=== PATIENT | male | born 1950 | race Caucasian/White ===

== ENCOUNTER 2024-10-13 10:02 | Emergency (ER) | payer MEDICARE, SELFPAY ==
--- NOTE | ~2024-10-13 | XR_ITS ---
CHEST RADIOGRAPH CLINICAL HISTORY: cough . COMPARISON: None TECHNIQUE: Single portable view of the chest. FINDINGS The cardiomediastinal silhouette is unremarkable. The lungs are clear. Visualized osseous structures and soft tissues are unremarkable. IMPRESSION: No focal infiltrate or effusion. Reviewed, dictated and finalized at location A. DEVELOPER ARCHITECT
[2024-10-13 10:26] VITALS: BP 129/78; PULSE 59; RESP 18; TEMP 36.3; O2SAT 98
[2024-10-13 12:02] VITALS: BP 124/80; PULSE 70; RESP 16; TEMP 36.6; O2SAT 100
[2024-10-13] MEDS: BENZONATATE 100 MG CAPSULE 200 MG PO (13:09)
[2024-10-13 13:19] LABS: Influenza A QL RT-PCR Negative (Negative); Influenza B QL RT-PCR Negative (Negative); RSV RNA, RT-PCR Negative (Negative); SARS-CoV-2 RNA PCR Negative (Negative)
--- NOTE | 2024-10-13 13:25 | ED_ITS ---
HPI - General Adult General Chief complaint: Upper Respiratory Infection Stated complaint: cough Time Seen by Provider: 10/13/24 12:01 History of Present Illness HPI narrative: 74-year-old male presents to the emergency department for evaluation for cough and congestion. Patient states he was evaluated at the urgent care on Sunday was also diagnosed with common cold. Patient was not prescribed any medication for cough suppression. Patient presents to the emergency department with family complaining of increased cough. Related Data Allergies Allergy/AdvReac Type Severity Reaction Status Date / Time lisinopril Allergy Severe Swelling Verified 10/13/24 13:09 of Lip/Tongue/Throat Review of Systems Review of Systems: All systems reviewed & are unremarkable except as noted in HPI and below Exam Narrative: APPEARANCE: Well appearing, no pain, no distress, well-nourished. HEAD: normocephalic, atraumatic. EYES: PERRLA/EOMI, conjunctivae clear. NOSE: Normal no drainage EARS:TMS clear with good light reflex. THROAT: Pharynx clear, no exudate. NECK: Supple. No adenopathy, no masses. RESPIRATORY: Airway patent, respirations nonlabored. Clear to auscultation bilaterally, no rales, rhonchi, wheezing. CARDIOVASCULAR: Regular rate and rhythm without murmurs rubs or gallops. ABDOMINAL: Soft, nontender, nondistended, normal bowel sounds MUSCULOSKELETAL: Moves all extremities. Strength/ROM intact, No edema, No calf tenderness. NEURO: Alert. Cranial nerves II through XII intact. Good gait. Good coordination SKIN: Warm, dry. Normal Color Course Vital Signs Vital signs: Vital Signs Temperature 97.4 F L 10/13/24 10:26 Pulse Rate 59 L 10/13/24 10:26 Respiratory Rate 18 10/13/24 10:26 Blood Pressure 129/78 10/13/24 10:26 Pulse Oximetry 98 10/13/24 10:26 Oxygen Delivery Room Air 10/13/24 10:26 Temperature 97.9 F 10/13/24 14:24 Pulse Rate 68 10/13/24 14:24 Respiratory Rate 16 10/13/24 14:24 Blood Pressure 118/78 10/13/24 14:24 Pulse Oximetry 98 10/13/24 14:24 Oxygen Delivery Room Air 10/13/24 12:01 Medical Decision Making [facility] Narrative Medical decision making narrative: 74-year-old male from the emergency department for evaluation for viral syndrome. Patient was negative influenza RSV and for COVID. Chest x-ray as negative. Patient will be provided Tessalon Perles for cough. Patient was encouraged of close follow-up with primary care physician. Differential Diagnosis Differential Diagnosis: COVID, RSV, influenza, pneumonia Vital Signs Vital Signs: Vital Signs Temperature 97.4 F L 10/13/24 10:26 Pulse Rate 59 L 10/13/24 10:26 Respiratory Rate 18 10/13/24 10:26 Blood Pressure 129/78 10/13/24 10:26 Pulse Oximetry 98 10/13/24 10:26 Oxygen Delivery Room Air 10/13/24 10:26 Temperature 97.9 F 10/13/24 14:24 Pulse Rate 68 10/13/24 14:24 Respiratory Rate 16 10/13/24 14:24 Blood Pressure 118/78 10/13/24 14:24 Pulse Oximetry 98 10/13/24 14:24 Oxygen Delivery Room Air 10/13/24 12:01 Lab Data Labs: Lab Results 10/13/24 Range/Units 12:38 Influenza A (RT-PCR) Negative (Negative) Influenza B (RT-PCR) Negative (Negative) RSV (RT-PCR) Negative (Negative) SARS-CoV-2 RNA (RT-PCR) Negative (Negative) Imaging Data Radiologist's impression: Impressions Chest X-Ray 10/13/24 13:40 IMPRESSION: No focal infiltrate or effusion. Discharge Plan Discharge Clinical Impression: Acute viral syndrome Patient Disposition: Home, Self-Care Condition: Stable Instructions: Antibiotic Form, Viral Syndrome (ED) Additional Instructions: Tessalon Perles for cough and congestion. Have close follow-up with your primary care physician. If you have any worsening symptoms then please call or return to the emergency department Patient Language: Citizen Of [place] Prescriptions: New benzonatate 100 mg capsule 100 mg PO TID PRN (Reason: cough) Qty: 14 0RF Follow-up/Referrals: Short,Nica Fitzgerald NP [Primary Care Provider] -
--- OUTSIDE RECORDS SUMMARY | 2024-10-13 13:59 | XMS_ITS | Encounter Summary ---
Author Organization [facility] Address [address] [place] [address] Care Team Providers Care Painter Mirror Name Role Phone Yudith Burrows DO Primary Care Provider [phone] Encounter Details Date Type Department Care Team (Late st Contact Info) Description 08/05/2020 Prep for Procedure [facility] [place] [address] Godwin Henderson MD Social History Tobacco Use Types Packs/Day Years Used Date Smoking Tobacco: Never Assessed Sex and Gender Information Value Date Recorded Sex Assigned at Not on file Legal Sex Male 8:04 PM CDT Gender Identity Not on file Sexual Orientation Not on file documented as of this encounter Plan of Treatment Not on file documented as of this encounter Visit Diagnoses Not on filedocumented in this encounter Additional Health Concerns Infection Onset Date Last Indicated Resolved Time COVID-19 Rule Out 08/07/2020 08/07/2020 08/08/2020 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
--- OUTSIDE RECORDS SUMMARY | 2024-10-13 13:59 | XMS_ITS | Encounter Summary ---
Author Organization [facility] Address [address] [place] [address] Care Team Providers Care Clay House Worker Name Role Phone Yudith Burrows DO Primary Care Provider Encounter Details Date Type Department Care Team (Late st Contact Info) Description 08/07/2020 Prep for Procedure [facility] One [place], [place] [address] Quirino Pimentel MD [address] [address] Social History Tobacco Use Types Packs/Day Years Used Date Smoking Tobacco: Never Assessed Sex and Gender Information Value Date Recorded Sex Assigned at Not on file Legal Sex Male 8:04 PM CDT Gender Identity Not on file Sexual Orientation Not on file COVID-19 Exposure Response Date Recorded In the last month, have you been in contact with someone who was confirmed or suspected to have Coronavirus / COVID-19? No / Unsure 08/10/2020 7:22 AM ELECTRICAL PRODUCTS ENGINEER documented as of this encounter Plan of Treatment Not on file documented as of this encounter Results * PRE-SURGICAL/PRE-PROCEDURE CORONAVIRUS (COVID 19) (08/07/2020 11:58 AM ELECTRICAL PRODUCTS ENGINEER) CORONAVIRUS SARS COV 2 PCR (RESP) NOT DETECTED NOT DETECTED 08/08/2020 8:16 PM ELECTRICAL PRODUCTS ENGINEER [facility] Comment: A Not Detected (negative) test result for this test means that SARS- CoV-2 RNA was not present in the specimen above the limit of detection. A negative result does not rule out the possibility of COVID-19 and should not be used as the sole basis for treatment or patient management decisions. If COVID-19 is still suspected, based on exposure history together with other clinical findings, re-testing should be considered in consultation with public health authorities. Laboratory test results should always be considered in the context of clinical observations and epidemiological data in making a final diagnosis and patient management decisions. Please review the Fact Sheets and FDA authorized labeling available for health care providers and patients using the following websites: https://[email or web address]/home/Covid-19/HCP/NAAT/fact-sheet2 https://www.[employer]/home/Covid-19/Patients/NAAT/ fact-sheet2 This test has been authorized by the FDA under an Emergency Use Authorization (EUA) for use by authorized laboratories. Due to the current public health emergency, [facility] is receiving a high volume of samples from a wide variety of swabs and media for COVID-19 testing. In order to serve patients during this public health crisis, samples from appropriate clinical sources are being tested. Negative test results derived from specimens received in non-commercially manufactured viral collection and transport media, or in media and sample collection kits not yet authorized by FDA for COVID-19 testing should be cautiously evaluated and the patient potentially subjected to extra precautions such as additional clinical monitoring, including collection of an additional specimen. Methodology: Nucleic Acid Amplification Test (NAAT) includes RT-PCR or TMA Additional information about COVID-19 can be found at the [facility] website: www.[employer]/Covid19. Test performed at [facility] [address] [place] [address] Director: OMERO PETIT DO,MPH FIRST TEST YES 08/07/2020 12:[address] [facility] EMPLOYED IN HEALTHCARE NO 08/07/2020 12:[address] [facility] SYMPTOMATIC DEFINED BY CDC NO 08/07/2020 12:[address] [facility] DATE OF SYMPTOM ONSET NO 08/07/2020 12:[address] [facility] HOSPITALIZATION STATUS NO 08/07/2020 12:15 PM ELECTRICAL PRODUCTS ENGINEER [facility] PATIENT IN ICU NO 08/07/2020 12:15 PM ELECTRICAL PRODUCTS ENGINEER [facility] 08/07/2020 12:15 PM ELECTRICAL PRODUCTS ENGINEER [facility] NOT 08/07/2020 12:42 PM ELECTRICAL PRODUCTS ENGINEER [facility] PATIENT'S RACE WHITE OR 08/07/2020 12:15 PM ELECTRICAL PRODUCTS ENGINEER [facility] ETHNICITY NONHISPANIC 08/07/2020 12:15 PM ELECTRICAL PRODUCTS ENGINEER [facility] SOURCE (QST) NASOPHARYNGEAL SWAB 08/07/2020 12:15 PM ELECTRICAL PRODUCTS ENGINEER [facility] NASOPHARYNGEAL SWAB / Unknown 08/07/2020 11:58 AM ELECTRICAL PRODUCTS ENGINEER us Quirino Pimentel MD [facility] Final Result [facility] [address] [place] [address], [facility] [id number] [place] [address], documented in this encounter Visit Diagnoses Diagnosis History of colon polyps- Primary Personal history of colonic polyps documented in this encounter Additional Health Concerns Infection Onset Date Last Indicated Resolved Time COVID-19 Rule Out 08/07/2020 08/07/2020 08/08/2020 8:16 PM ELECTRICAL PRODUCTS ENGINEER documented as of this encounter Care Teams Clay House Worker Relationship Specialty Start Date End Date Yudith Burrows DO [address] [place] [phone] PCP - General INTERNAL MEDICINE 08/10/20 documented as of this encounter
--- OUTSIDE RECORDS SUMMARY | 2024-10-13 13:59 | XMS_ITS | Patient Health Record ---
Author Organization [facility] Address [address] [place] [address] Care Team Providers Care Transport Specialist Name Role Phone Ebenezer Nica Primary Care Provider Edgardo Roth Unavailable [phone] Yris Man Unavailable [phone] America Mckee Unavailable [phone] Allergies Allergen (clinical drug ingredient) Drug/Non Drug Allergy documented on EMR Reaction Allergy Type Onset Date Status lisinopril Lisinopril anaphylaxis Drug Allergy Act alan Reason For Referral Reason Referral for psychot herapy and client wants information on outpatient classes for anxiety, coping skills, or other types of wellness groups Diagnosis 1 SYLVIA (generalized anx iety disorder) (F41.1) Referral Organization [facility] Referring Provider First Name America Referring Provider Last Name Rylee Referring Provider Speciality Psychiatry Referred Provider Specialty Behavioral H [facility] Referral Priority Routine Medications Medication SIG (Take, Route, Frequency, Duration) Notes Start Date End Date Status HYDROcodone-Acetaminophen 5-325 MG 1 tablet as needed as needed Active Promethazine-DM 6.25-15 MG/5ML 5 mL as needed Orally every 6 hrs for 10 days As needed cough 10/08/2024 Active buPROPion HCl ER (XL) 150 MG 1 tablet in the morning Once a day Active traZODone HCl 50 MG 1 tablet at bedtime as needed Once a day Active Sertraline HCl 200 MG 1 capsule Once a day Active Furosemide 20 MG 1 tablet Once a day Active Atorvastatin Calcium 10 MG 1 tablet Once a day Active Social History Tobacco Use: Social History Observation Description Date Details (start date - stop date) Never Smoker NA - NA Sex Assigned At : Social History Observation Description Sex Assigned At Male Tobacco Control (Standard) Question Answer Notes Tobacco use: Nonsmoker Section Notes: - - - - - - - - - - - ADDITIONAL SOCIAL HISTORY 10/06/2024: - - - - - - - - - - - PERSONAL BACKGROUND HISTORY Describe childhood- Happy, grew up with both parents and 3 siblings Abuse/Trauma- None Education- Bachelor's degree in art 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 Currently on sertraline, bupropion, and trazodone. 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 Currently on sertraline, bupropion, and trazodone. Inpt Psych Hospitalizations - None Suicidal Ideation Hx - None Suicide Attempt(s) - None Homicidal Ideation - None Self-Injury/High Risk Bx - None - - - - - - - - - - - FAMILY PSYCHIATRIC HISTORY Suicides or Attempts - None Alcohol/Drug Use - Brother had drug abuse issues Other Disorders - No known mental illness on either side of family - - - - - - - - - - - Problems Problem Type SNOMED Code ICD Code Onset Dates Problem Status W/U Status Risk Notes Problem Hypertension (39887059) Hypertension (I10) Active confirmed Problem Generalized anxiety disorder (69967852) SYLVIA (generalized anxiety disorder) (F41.1) Active confirmed Problem Sleep disturbance (94834754) Sleep disturbance (G47.9) Active confirmed Vital Signs Heart Rate 61 /min 10/09/2024 Temperature 98.8 degrees Fahrenheit 10/09/2024 Respiratory Rate 18 /min 10/09/2024 Blood pressure diastolic 78 mm Hg 10/09/2024 Oximetry 98 % 10/09/2024 Height 74 in 10/09/2024 Blood pressure systolic 118 mm Hg 10/09/2024 Weight 234.8 lbs 10/09/2024 BMI 30.14 kg/m2 10/09/2024 Encounters Encounter Location Date Provider Diagnosis [facility] [address] [place] [address] 10/08/2024 rYis Man [facility] [address] [place] [address] 10/13/2024 Nica Sol [facility] [address] [place] [address] 10/09/2024 Nica Sol Nutritional counseling Z71.3 ; Viral upper respiratory infection J06.9 and Development delay R62.[address] [place] [address] 10/08/2024 Edgardo Roth Nutritional counseling Z71.3 and Viral URI with cough J06.[address] [facility] [address] 10/01/2024 Nica Sol Nutritional counseling Z71.3 ; Establishing care with new doctor, encounter for Z71.89 ; Screening for deficiency anemia Z13.0 ; Screening for metabolic disorder Z13.228 ; Screening for diabetes mellitus Z13.1 ; Screening for thyroid disorder Z13.29 ; Screening for hyperlipidemia Z13.220 ; Screening for prostate cancer Z12.5 and Hypertension I10 [address] [place] [address] 10/06/2024 America Mckee SYLVIA (generalized anxiety disorder) F41.1 ; Sleep disturbance G47.9 and Medication management Z79.899 Assessments Encounter Date Diagnosis (ICD Code) Assessment Notes Treatment Notes Treatment Clinical Notes Section Notes 10/01/2024 Establishing care with new doctor, encounter for (ICD-10 - Z71.89) 10/01/2024 Nutritional counseling (ICD-10 - Z71.3) 10/08/2024 Nutritional counseling (ICD-10 - Z71.3) 10/08/2024 Viral URI with cough (ICD-10 - J06.9) 10/09/2024 Nutritional counseling (ICD-10 - Z71.3) 10/09/2024 Viral upper respiratory infection (ICD-10 - J06.9) 10/06/2024 SYLVIA (generalized anxiety disorder) (ICD-10 - F41.1) Recommend client continue currement medications for mood, and start therapy and/or outpatient classes for irritability. 10/06/2024 Sleep disturbance (ICD-10 - G47.9) 10/01/2024 Screening for deficiency anemia (ICD-10 - Z13.0) 10/06/2024 Medication management (ICD-10 - Z79.899) Client reports that he does NOT need refills at this time. May self-administer medications or be administered own oral medications per [facility] protocols. Provided informed consent with understanding of side effects, adverse effects, risks and benefits as well as alternative treatments as previously discussed and with the above recommended medications & other aspects of the treatment program. Agrees to return sooner if symptoms worsen or suicidal or homicidal ideations occur. 10/09/2024 Development delay (ICD-10 - R62.50) 10/01/2024 Screening for metabolic disorder (ICD-10 - Z13.228) 10/01/2024 Screening for diabetes mellitus (ICD-10 - Z13.1) 10/01/2024 Screening for thyroid disorder (ICD-10 - Z13.29) 10/01/2024 Screening for hyperlipidemia (ICD-10 - Z13.220) 10/01/2024 Screening for prostate cancer (ICD-10 - Z12.5) 10/01/2024 Hypertension (ICD-10 - I10) 10/09/2024 Other Patient may self-administe r their own medications or may self-administe r their own oral medications per [facility] Protocol. Plan Of Treatment Future Test Test Name Order Date Hemoglobin A1c* 10/01/2024 CBC With Differential/Platelet* 10/01/19 25 Lipid Panel* 10/01/2024 CMP 14 Comprehensive Metabolic Panel* TSH Rfx on Abnormal to Free T4 5 PSA Total (Reflex To Free) 10/01/2024 Insurance Providers Payer Name Payer Address Payer Phone Subscriber Number Group Number Insured Name Patient Relationship to Insured Coverage Start Date Coverage End Date [employer] MMAI [address] [place] [address] [id number] Franklin Martinez Self - patient is the insured 5 Medical (General) History Medical History History ICD Code hypertension hyperlipidemia generalized anxiety Surgical History Surgery Date(Month/Year) hernia repair 1963 Hospitalization History Reason Date(Month/Year)
--- OUTSIDE RECORDS SUMMARY | 2024-10-13 13:59 | XMS_ITS ---
Author Organization [facility] Address [address] [place] [address] Care Team Providers Care Leg Man Name Role Phone Nica Sol Primary Care Provider REASON FOR VISIT symptoms have not gotten better Social History Sex Assigned At : Social History Observation Description Sex Assigned At Male Encounters Encounter Location Date Provider Diagnosis [address] [place] [address] 10/13/2024 Nica Sol Plan Of Treatment No Information Progress Notes * Franklin MARTINEZDOB:1950 (74 yo M)Acc No.[id number]:10/13/2024 UNLOCKED PROGRESS NOTE Progress Notes Patient: Franklin LOVETT Provider: Michael Sol APRN :1950 A ge:74 Y S ex:Male Date:10/13/2024 Address:[address] [place] [id number] Subjective: * Chief Complaints: * 1 . Symptoms have not gotten better. * Medical History: Objective: * Vitals: Assessment: Plan: * Treatment: * * Electronic signature of Heather Sol , [id number] on 10/13/2024 at 01:59 PM CONFIGURATION MANAGEMENT ADVISOR Sign off status: Pending * Provider: Michael Sol APRN Date: 10/13/2024 Generated for Leorai ng/F[place]/eTransmitting on: 10/13/2024 01:59 PM CONFIGURATION MANAGEMENT ADVISOR
--- OUTSIDE RECORDS SUMMARY | 2024-10-13 14:00 | XMS_ITS ---
Author Organization [facility] Address [address] [place] [address] Care Team Providers Care Chimney Repairer Name Role Phone Nica Sol Primary Care Provider [phone] REASON FOR VISIT cough Social History Sex Assigned At : Social History Observation Description Sex Assigned At Male Encounters Encounter Location Date Provider Diagnosis [facility] [address] [place] [address] 10/13/2024 Nica Sol Plan Of Treatment No Information Progress Notes * Franklin MARTINEZDOB:1950 (74 yo M)Acc No.[id number]:10/13/2024 UNLOCKED PROGRESS NOTE Patient: Franklin LOVETT :1950 A ge:74 Y S ex:Male Address:[address] [place] [address], [address] * * Date:
--- OUTSIDE RECORDS SUMMARY | 2024-10-13 14:00 | XMS_ITS | Referral Summary ---
Author Organization [facility] [address] [facility] mildred Address [address] [place] [address] Care Team Providers Care Physical Education Aide Name Role Phone Quirino Anderson MD Unavailable [phone] Dane Muñoz MD Primary Care Provider + [phone] Encounters Date Type Department Care Team Description 08/18/2024 Nurse Triage [facility] [address] [place] [address] Dane Muñoz MD Acute cough (Primary Dx); Shortness of breath 08/11/2024 Telephone [facility] [address] [place] [address] Dane Muñoz MD Medical Question/Miscellane ous 08/05/2024 Telephone [facility] [address] [place] [address] Dane Muñoz MD Medical Question/Miscellane ous 08/04/2024 Patient Self-Triage [facility] [address] [place] [phone] [place], [facility] Provider 08/04/2024 Patient Self-Triage [facility] [address] [place] [id number] Mychart, Generic Provider 08/04/2024 Patient Self-Triage [facility] [address] [place] [address] Mychart, Generic Provider 08/04/2024 Patient Self-Triage [facility] [address] [place] [address] Mychart, Generic Provider 08/01/2024 Telephone [facility] [address] [place] [phone] Dane Muñoz MD Additional Services Or Orders 07/13/2024 6:30 PM [facility] Telemedicine [facility] [address] [place] [address] Kadi Morrison NP Bronchitis (Primary Dx) 07/13/2024 Patient Self-Triage [facility] [place] [address] Mychart, Generic Provider from Last 3 Months Allergies Active Allergy Reactions Criticality Noted Date Comments Lisinopril Anaphylaxis High 12/27/2020 Medications meclizine (ANTIVERT) 25 mg tablet Take 1 tablet by mouth three times a day as needed for dizziness. 270 tablet 1 08/01/20 22 Active HYDROcodone-mildred taminophen (NORCO) 5-325 mg per tabletIndicatio ns:Pain Take 1-2 tablets by mouth every 8 (eight) hours as needed for pain (as needed for pain) 120 tablet 07/31/20 23 Active valsartan (DIOVAN) 160 mg tablet Take 1 tablet (160 mg total) by mouth daily 30 tablet 5 02/25/20 24 Active cholecalciferol (VITAMIN D-3) 2000 unit capsule Take 1 capsule (2,000 Units total) by mouth daily 03/12/20 24 Active furosemide (LASIX) 20 mg tablet Take 1 tablet (20 mg total) by mouth daily 30 tablet 11 03/13/20 24 025 Active traZODone (DESYREL) 150 mg tablet Take 1 tablet (150 mg total) by mouth nightly 90 tablet 06/02/20 24 Active buPROPion XL (WELLBUTRIN XL) 150 mg 24 hr tablet TAKE 1 TABLET BY MOUTH EVERY DAY IN THE MORNING 100 tablet 1 06/06/20 24 Active sertraline (ZOLOFT) 100 mg tablet TAKE 1 TABLET BY MOUTH TWICE A DAY 200 tablet 1 06/06/20 24 Active ARIPiprazole (ABILIFY) 10 mg tablet TAKE 1 TABLET BY MOUTH EVERY DAY 90 tablet 1 06/16/20 24 Active penicillin v potassium (VEETID) 500 mg tabletIndicatio ns:Upper respiratory tract infection, unspecified type TAKE 2 TABLETS BY MOUTH NOW THEN TAKE 1 TABLET 4 TIMES A DAY 06/25/20 24 Active benzonatate (TESSALON) 200 mg capsuleIndicati ons:Upper respiratory tract infection, unspecified type Take 1 capsule (200 mg total) by mouth 3 (three) times a day as needed for cough keep tessalon out of reach of children, especially children under the age of 10, due to possible serious risk such as if ingested by children under the age of 10. 30 capsule 06/30/20 24 Active atorvastatin (LIPITOR) 10 mg tablet Take 1 tablet by mouth once daily 90 tablet 07/11/20 24 Active albuterol HFA (PROVENTIL HFA,VENTOLIN HFA,PROAIR HFA) 90 mcg/actuation inhaler Inhale 2 puffs every 4 (four) hours as needed for wheezing or shortness of breath 1 each 08/18/20 24 Active omeprazole (PriLOSEC) 40 mg capsule TAKE 1 CAPSULE (40 MG TOTAL) BY MOUTH DAILY. 90 capsule 09/21/19 25 Active omeprazole (PriLOSEC) 40 mg capsule Take 1 capsule (40 mg total) by mouth daily 90 capsule 1 03/28/20 24 025 Discontinued Active Problems Problem Noted Date Diagnosed Date Extremity edema 03/13/2024 Assessment & Plan (03/21/2024 11:45 AM CDT): Improved. Continue Lasix 20 mg daily. Needs to get echocardiogram done. Assessment & Plan (03/13/2024 8:42 AM CDT): Worsening of chronic lower extremity edema. The differential diagnosis is wide and of uncertain prognosis. This can be due to liver for renal problem but those tests were normal. It could be due to anemia CBC is normal. It could be due to thyroid problem. Will check TSH could be due to congestive heart failure but no shortness of breath. We will check BNP. No past history of heart disease. Could be due to venous disease or lymphedema. Could be due to medication but he is not on any medicine that should cause edema. We will give low-dose Lasix and re-evaluate when we Esophageal dysphagia 03/11/2024 Assessment & Plan (03/11/2024 10:43 AM CDT): Needs referral to GI for upper endoscopy. We will get abdominal ultrasound and CBC/CMP. Encouraged to take omeprazole more regularly for the next few weeks. He has been taking it sporadically. Right upper quadrant pain 03/11/2024 Assessment & Plan (03/11/2024 10:40 AM CDT): He has some right upper quadrant discomfort associated with the dysphagia and we will check ultrasound but also refer to GI. Other fatigue 01/11/2024 Assessment & Plan (01/11/2024 12:00 PM CDT): VSS, NAD, lungs ctab Rapid covid, flu negative Rapid strep negative. TC pending Very early on, no other symptoms, discussed monitor symptoms Tylenol for aches, pains. Take per package directions Antihistamines like Claritin or Zyrtec and Flonase nasal spray, as needed for drainage for 7-10 days. Take per package directions Cool mist humidifier, nasal saline spray , 2 sprays each nostril 3-4 times a day for 7-10 days for congestion Delsym (cough suppressant) and Mucinex (cough expectorant) as needed for coughing. Follow package directions Frequent cough drops and lozenges Increase sugar free fluids, especially decaffeinated ones Discussed the life expectancy of a viral illness is 7 to 10 days. Instructed to use good handwashing within the household. Patient understands and agrees with treatment plan. Avoid spreading the virus by remaining at home and away from others until you are fever-free (temperature below 100) for 24 hours. Good handwashing and covering your mouth when coughing are also important. Follow up with PCP for any symptoms persisting beyond 10-14 days. ER VLADIMIR for chest pain, chest tightness, shortness of breath, persistent dizziness, syncope, inability to tolerate oral intake Bipolar depression ([facility]) 09/10/2023 Assessment & Plan (06/06/2024 12:52 PM CDT): Continue Zoloft/Abilify at same dosage. Well controlled. Assessment & Plan (03/21/2024 11:21 AM CDT): Continue sertraline/Abilify/Wellbutrin at same dosage. Well controlled. Assessment & Plan (09/11/2023 3:13 PM BRIM SHAPER): Continue Wellbutrin/Abilify at same dosage. Well controlled. Chronic bilateral low back pain with right-sided sciatica 06/12/2023 Assessment & Plan (06/06/2024 12:56 PM CDT): Infrequent need for [place] or Motrin. Patient is advised that opiates should only be used as needed. They can be habit-forming and may impair judgment even if drowsiness not noticed. Nothing dangerous should be done while taking these medicines such as driving. Discussed other alternatives for pain including NSAIDs, anticholinergic medication , anti seizure medication, behavioral management, physical therapy, physical modalities, and Tylenol. Assessment & Plan (09/11/2023 3:20 PM BRIM SHAPER): Improved. Now taking medicines including Motrin and hydrocodone infrequently Assessment & Plan (06/12/2023 3:49 PM CDT): Worsening of chronic back pain. Especially worse in the last few weeks. Has been seeing chiropractor long-term for back pain. No benefit with chiropractic therapy. Also taking Motrin 600 mg and hydrocodone. Also recommend consider short course of steroids but declined after discussing risk and benefits. Declines x-rays. Some relief with tiger balm. No imaging study on the chart of low back. Recommend x- rays. Likely lumbar radiculopathy. Recommend rest few weeks taper we gotten and would like to get him off the hydrocodone and the he has been taking 2 pills 4 times a day. Patient is advised that opiates should only be used as needed. They can be habit-forming and may impair judgment even if drowsiness not noticed. Nothing dangerous should be done while taking these medicines such as driving. Discussed other alternatives for pain including NSAIDs, anticholinergic medication , anti seizure medication, behavioral management, physical therapy, physical modalities, and Tylenol. Contact us if any bowel or bladder symptoms. Contact us for worsening of symptoms or weakness developing. Abnormal chest x-ray 05/22/2023 Assessment & Plan (05/22/2023 2:09 PM CDT): Recommend repeat chest x-ray few months. There was small right pleural effusion. There was also small right lung base opacity. Rib pain on right side 05/07/2023 Assessment & Plan (05/17/2023 5:23 PM CDT): Vital signs stable, no acute distress, lungs CTAB, oxygen saturation 93%, same as at recent PCP appointment on 05/11/23, patient denies shortness of breath at this time Ordered repeat chest x-ray as patient states symptoms are persistent Continue topical Voltaren gel, lidocaine patches and warm compresses Take Tylenol or prescribed pain medication as needed for pain Follow up with PCP for persistent symptoms next week if needed ER if worsening including shortness of breath or chest pain Assessment & Plan (05/07/2023 7:31 PM CDT): VSS, NAD, lungs ctab Possibly due to costochondritis given ongoing cough , reproducible pain on palpation However will order chest x-ray to rule out lower respiratory tract infection, pleural effusion, pneumothorax Patient unable to take NSAIDs Topical Voltaren gel, lidocaine patch, warm compress Tylenol as needed for pain PCP for persistent symptoms Acute cough 05/07/2023 Assessment & Plan (05/07/2023 4:56 PM CDT): VSS (low-grade temperature 99.1 ) Symptom duration 2.2 weeks Azithromycin as prescribed Tessalon Perles as needed for cough Mucinex as cough expectorant PCP for persistent symptoms ER for fevers, chest pain, shortness of breath Overweight 04/25/2023 Assessment & Plan (04/25/2023 4:26 PM CDT): BMI Follow-up includes: nutrition counseling and exercise counseling. Agitation 08/01/2022 Assessment & Plan (03/21/2024 11:37 AM CDT): Worsening of chronic agitation. Recommend increase Abilify to 10 mg. Assessment & Plan (01/08/2023 3:44 PM CDT): Continue Abilify 5 mg at same dosage. Well controlled. Assessment & Plan (09/15/2022 8:07 AM BRIM SHAPER): Improved. Continu Wellbutrin/Abilify/Zoloft at same dosage. Well controlled. Assessment & Plan (08/01/2022 1:35 PM BRIM SHAPER): Worsening of agitation x1 month. This is most likely mood related. It is possible this could be aggravated by the Zoloft or the Wellbutrin. Recommend taper down on dosage of 1 of the medicines. Also recommend consideration of mood stabilizer aripiprazole Chronic left shoulder pain 02/13/2022 Assessment & Plan (02/21/2022 2:05 PM CDT): Onset 4 months ago. X-ray was unremarkable. Will try steroid injection today. Shoulder stretches information printed for patient. If it will not work call back. Assessment & Plan (02/14/2022 1:10 PM CDT): We should get x-rays. The differential diagnosis is wide and of uncertain prognosis. This could be a soft tissue problem such as bicipital tendinitis particularly since he is tender over the insertion of the bicipital tendon. It could be bursitis. It could be osteoarthritis in the shoulder. NSAIDs are problematic because of his decreased renal function he has been taking hydrocodone but infrequently. We will give him a few more hydrocodone and refer him to orthopedics for possible steroid injection. Patient is advised that opiates should only be used as needed. They can be habit-forming and may impair judgment even if drowsiness not noticed. Nothing dangerous should be done while taking these medicines such as driving. Discussed other alternatives for pain including NSAIDs, anticholinergic medication , anti seizure medication, behavioral management, physical therapy, physical modalities, and Tylenol. Right shoulder injury 01/02/2022 History of elevated glucose 12/30/2021 Assessment & Plan (12/30/2021 1:04 PM CDT): Glucose remains normal. Patient was encouraged to decrease the sugar and starch in diet. This means avoiding juices and sugar sweetened drinks. Patient should limit REFINED carbohydrates such as bread, rice, cereal pasta, and mashed potatoes. Regular exercise for more than 30 minutes t most days was encouraged to further improve blood sugar. The main fruit to avoid are grapes , pineapple, and bananas. Encouraged to maintain vegetables. Repeat lipids 6 months with CMP Other general medical examin ation for administrative purposes 12/30/2021 Sensation of plugged ear on left side 10/26/2021 Assessment & Plan (10/27/2021 10:15 AM BRIM SHAPER): Complete wax blockage and we will try and removed by combination of manual deprived meant and irrigation. A large amount of wax was removed in ear drum appears normal Upper respiratory infection 08/23/2021 Assessment & Plan (08/23/2021 1:17 PM BRIM SHAPER): We will give Z-Quinten and oral steroids but if worse needs to go to ER. We will trying to arrange COVID test. Bronchospasm 08/23/2021 Assessment & Plan (05/22/2023 2:19 PM CDT): Resolved but we will give albuterol inhaler as it did help in case he gets recurrent symptoms Assessment & Plan (05/15/2023 10:46 AM CDT): Much improved. Complete Augmentin and discontinue medication after that. Assessment & Plan (05/11/2023 2:18 PM CDT): Worsening of chronic bronchospasm. We will treat with oral steroids. Just started antibiotics for few days so will defer changing antibiotic for now. If not better next week we will give Levaquin. Possible pneumonia on chest x-ray but unclear Assessment & Plan (08/23/2021 1:17 PM BRIM SHAPER): Treat with oral steroids Dermatitis 05/03/2021 Assessment & Plan (05/03/2021 3:39 PM CDT): We will give him some triamcinolone for the dermatitis surrounding the mole on his back. Use only 1 itching or irritated referred to Dermatology Neoplasm of uncertain behavior of adnexa of skin 05/01/2021 Assessment & Plan (01/02/2022 1:33 PM CDT): Multiple nevi all most likely benign but there is a larger pigmented 1 on the back measuring 2 x 1 cm though it is uniform Assessment & Plan (06/30/2021 2:57 PM BRIM SHAPER): At the time of the last visit he had several lesions on his back that were thought to likely be seborrheic keratosis but they were symptomatic and it was difficult to be sure that they could not be skin cancer so he was referred to Dermatology. They itch t sometimes and he was given a prescription for triamcinolone cream as needed. One measured 2 x 2 cm in the other measured 2 x 1.5 cm Assessment & Plan (05/03/2021 3:40 PM CDT): The largest lesion on his left back that they are most concerned about measures 2 x 2 cm and appears to be a seborrheic keratosis but can not rule out melanoma within this. Refer to Dermatology. Given some hydrocortisone cream to use if irritated or itching. Also he has several other moles on the back 1 that almost appears more like an adry leaf spot and 1 that looks like a dermato fibroma Encounter for Medicare annual wellness exam 04/20 Benign essential hypertension 12/27/2020 Assessment & Plan (06/06/2024 12:50 PM CDT): Continue valsartan at same dosage. Well controlled. Assessment & Plan (03/21/2024 11:22 AM CDT): Continue valsartan at same dosage. Well controlled. Assessment & Plan (03/13/2024 8:15 AM CDT): Continue Diovan at same dosage. Well controlled. Assessment & Plan (03/11/2024 9:37 AM CDT): Continue valsartan at same dosage. Well controlled. Assessment & Plan (05/21/2023 11:50 AM CDT): Continue HCTZ at same dosage. Well controlled. Assessment & Plan (04/25/2023 4:21 PM CDT): Continue HCTZ at same dosage. Well controlled. Assessment & Plan (01/08/2023 3:41 PM CDT): Continue HCTZ at same dosage. Well controlled. Assessment & Plan (07/10/2022 1:19 PM BRIM SHAPER): Worsening of hypertension. I got higher than the nurse but this systolic at 142. systolic .Taking HCTZ 25 mg daily. Recommend add amlodipine 5 mg. Amlodipine declined. Assessment & Plan (12/30/2021 1:00 PM CDT): Continue HCTZ at same dosage. Well controlled. Assessment & Plan (10/26/2021 8:59 AM BRIM SHAPER): Continue HCTZ at same dosage. Well controlled. Assessment & Plan (06/30/2021 2:52 PM BRIM SHAPER): Continue HCTZ at same dosage. Well controlled. Assessment & Plan (05/01/2021 2:07 PM CDT): Continue HCTZ at same dosage. Well controlled. Assessment & Plan (12/27/2020 2:27 PM CDT): Continue HCTZ at same dosage. Well controlled. Gastroesophageal reflux disease 12/27/2020 Assessment & Plan (01/02/2022 1:39 PM CDT): Recommend trial off omeprazole but restart if symptoms recur Well controlled. Assessment & Plan (10/26/2021 9:02 AM BRIM SHAPER): Continue omeprazole at same dosage. Well controlled. Assessment & Plan (06/30/2021 2:53 PM BRIM SHAPER): Continue Pepcid at same dosage. Well controlled. Assessment & Plan (05/01/2021 2:08 PM CDT): Unable to taper the omeprazole. No alarm symptoms. Assessment & Plan (12/27/2020 2:27 PM CDT): Continue omeprazole at same dosage. Well controlled. Unable to taper the PPI. No alarm symptoms Patient is advised to PPIs can cause several medical problems. This includes making it hard to absorb minerals especially calcium which may cause bone loss. PPIs have also been associated with kidney problems and Alzheimer's disease. Use sparingly. Mixed hyperlipidemia 12/27/2020 Assessment & Plan (06/06/2024 12:51 PM CDT): Continue atorvastatin at same dosage. Well controlled. Needs repeat lipids Assessment & Plan (03/11/2024 9:40 AM CDT): Continue atorvastatin at same dosage. Well controlled. Assessment & Plan (04/25/2023 4:24 PM CDT): Continue atorvastatin at same dosage. Well controlled. Assessment & Plan (01/08/2023 3:43 PM CDT): Continue Lopid at same dosage. Well controlled. Needs repeat labs Assessment & Plan (07/30/2022 1:45 PM BRIM SHAPER): Continue Lopid at same dosage. Well controlled. Assessment & Plan (07/07/2022 9:48 AM BRIM SHAPER): Continue Lopid at same dosage. Well controlled. Assessment & Plan (12/30/2021 1:04 PM CDT): Lipids in 6 months. Continue gemfibrozil at same dosage. Well controlled. Assessment & Plan (10/26/2021 9:03 AM BRIM SHAPER): Continue Lopid at same dosage. Well controlled. Assessment & Plan (06/30/2021 2:54 PM BRIM SHAPER): Continue Lopid at same dosage. Well controlled. Assessment & Plan (05/01/2021 2:10 PM CDT): Continue Lopid. Needs repeat lipids Assessment & Plan (12/27/2020 2:27 PM CDT): Continue gemfibrozil at same dosage. Well controlled. Will check labs Insomnia 12/27/2020 Assessment & Plan (06/06/2024 12:53 PM CDT): Continue trazodone at same dosage. Well controlled. Assessment & Plan (04/25/2023 4:25 PM CDT): Continue trazodone at same dosage. Well controlled. Assessment & Plan (01/08/2023 3:46 PM CDT): Continue trazodone n at same dosage. Well controlled. Assessment & Plan (12/30/2021 1:06 PM CDT): Continue trazodone at same dosage. Well controlled. Assessment & Plan (10/26/2021 9:01 AM BRIM SHAPER): Continue trazodone at same dosage. Well controlled. Assessment & Plan (06/30/2021 2:53 PM BRIM SHAPER): Continue trazodone at same dosage. Well controlled. Assessment & Plan (05/01/2021 2:08 PM CDT): Continue trazodone at same dosage. Well controlled. Assessment & Plan (12/27/2020 2:27 PM CDT): Continue trazodone at same dosage. Well controlled. Elevated brain natriuretic peptide (BNP) level 0 12/27/2020 Assessment & Plan (03/21/2024 11:46 AM CDT): Suggestive of heart failure. Edema is improved. We will continue same dosage of Lasix but does need to get echocardiogram done Assessment & Plan (12/27/2020 2:28 PM CDT): Not on vitamin-D supplement. Will check level. Major depression in remission 12/27/2020 Assessment & Plan (03/13/2024 8:14 AM CDT): Continue sertraline/Abilify/Wellbutrin at same dosage. Well controlled. Assessment & Plan (03/11/2024 9:41 AM CDT): Continue aripiprazole/Zoloft/Wellbutrin at same dosage. Well controlled. Assessment & Plan (05/21/2023 11:50 AM CDT): Continue Wellbutrin/Abilify/ sertraline at same dosage. Well controlled. Assessment & Plan (04/25/2023 4:22 PM CDT): Continue Zoloft/Wellbutrin/Abilify at same dosage. Well controlled. Assessment & Plan (01/08/2023 3:45 PM CDT): Continue Zoloft/Abilify/Wellbutrin at same dosage. Well controlled. Assessment & Plan (09/15/2022 8:06 AM BRIM SHAPER): Improved. Continue Wellbutrin/Abilify/Zoloft at same dosage. Well controlled. Assessment & Plan (08/01/2022 1:43 PM BRIM SHAPER): Because of increased agitation we will decrease the Wellbutrin to 150 mg. Continue Zoloft at 200 mg. Add Abilify 5 mg. This is more anger than a physical symptoms. Assessment & Plan (07/07/2022 9:48 AM BRIM SHAPER): Continu Wellbutrin at same dosage. Well controlled. Assessment & Plan (02/13/2022 11:39 AM CDT): Continue Wellbutrin/sertraline at same dosage. Well controlled. Assessment & Plan (12/30/2021 1:00 PM CDT): Continue Zoloft/Wellbutrin at same dosage. Well controlled. Assessment & Plan (10/26/2021 9:00 AM BRIM SHAPER): Continue Zoloft/Wellbutrin at same dosage. Well controlled. Assessment & Plan (06/30/2021 2:53 PM BRIM SHAPER): Continue Zoloft/bupropion at same dosage. Well controlled. Assessment & Plan (05/01/2021 2:07 PM CDT): Continue Zoloft/bupropion at same dosage. Well controlled. Assessment & Plan (12/27/2020 2:28 PM CDT): Continue sertraline/bupropion at same dosage. Well controlled. Class 1 obesity due to exces s calories with serious comorbidity and body mass index (BMI) of 30.0 to 30.9 in adult 12/27/2020 Assessment & Plan (09/10/2023 5:03 PM BRIM SHAPER): BMI Follow-up includes: nutrition counseling and exercise counseling. Assessment & Plan (01/08/2023 3:49 PM CDT): .BMI Follow-up includes: nutrition counseling and exercise counseling. Assessment & Plan (07/07/2022 9:49 AM BRIM SHAPER): BMI Follow-up includes: nutrition counseling and exercise counseling. Assessment & Plan (12/30/2021 1:06 PM CDT): BMI Follow-up includes: nutrition counseling and exercise counseling. Assessment & Plan (10/26/2021 9:04 AM BRIM SHAPER): BMI Follow-up includes: nutrition counseling and exercise counseling. Assessment & Plan (06/30/2021 2:54 PM BRIM SHAPER): BMI Follow-up includes: nutrition counseling and exercise counseling. Assessment & Plan (05/01/2021 2:13 PM CDT): BMI Follow-up includes: nutrition counseling and exercise counseling. Assessment & Plan (12/27/2020 2:28 PM CDT): BMI Follow-up includes: nutrition counseling and exercise counseling. Currently not doing any exercise. Vertigo 12/27/2020 Assessment & Plan (01/08/2023 3:47 PM CDT): No progression or change in symptoms with occasional use of meclizine. Assessment & Plan (09/15/2022 8:07 AM BRIM SHAPER): No change in symptoms and well controlled with Antivert as needed. Assessment & Plan (08/01/2022 1:42 PM BRIM SHAPER): Chronic positional vertigo previously helped by Antivert but OTC Antivert too expensive. Would like to switch to prescription Antivert. Recommend ENT referral. Referral declined. Assessment & Plan (05/01/2021 2:12 PM CDT): Chronic infrequent vertigo with occasional use of Antivert Assessment & Plan (12/27/2020 2:29 PM CDT): Chronic with infrequent use of meclizine Vitamin D deficiency 12/27/2020 Assessment & Plan (03/11/2024 9:38 AM CDT): Continue weekly vitamin-D but needs repeat level. Assessment & Plan (09/10/2023 5:01 PM BRIM SHAPER): Continue weekly vitamin-D but needs repeat level. Assessment & Plan (07/30/2022 1:45 PM BRIM SHAPER): Continue vitamin-D weekly but needs repeat level. Assessment & Plan (12/30/2021 1:00 PM CDT): Needs repeat level. Continue vitamin-D same dosage Assessment & Plan (10/26/2021 9:01 AM BRIM SHAPER): Continue vitamin-D weekly same dosage but needs repeat vitamin-D level. Assessment & Plan (06/30/2021 2:54 PM BRIM SHAPER): Continue 32110 units weekly vitamin-D. Repeat level. Assessment & Plan (05/01/2021 2:09 PM CDT): Needs repeat level. Not on vitamin-D Assessment & Plan (12/27/2020 2:29 PM CDT): Check level. Current not on vitamin-D Resolved Problems Problem Noted Date Diagnosed Date Resolved Date Obesity with body mass index (BMI) of 30.0 to 39.9 07/04/2024 07/04/2024 Secondary hyperparathyroidism (CMS/HCC) 12/27/2020 12/30/2021 Assessment & Plan (05/01/2021 2:12 PM CDT): History of this condition so we should check his calcium level. Also PTH. Assessment & Plan (12/27/2020 2:28 PM CDT): Will check calcium Elevated serum glucose 12/27/202012/30 Assessment & Plan (05/01/2021 2:12 PM CDT): Patient has had elevated glucose but no recent labs on the chart. A1c today. Patient was encouraged to decrease the sugar and starch in diet. This means avoiding juices and sugar sweetened drinks. Patient should limit REFINED carbohydrates such as bread, rice, cereal pasta, and mashed potatoes. Regular exercise for more than 30 minutes t most days was encouraged to further improve blood sugar. The main fruit to avoid are grapes , pineapple, and bananas. Encouraged to maintain vegetables. Immunizations Immunization Administration Dates Next Due Influenza Virus Vaccine Trivalent Mdv 05/19/2024 Influenza, Quad, Adjuvantate d, Intramuscular 05/17/2023,04/17/2022 Influenza, Quadrivalent, Hig h Dose, Preservative Free, Intrr 04/12/2021,06/14/2020 Influenza, Trivalent, High D ose, Split, Preservative Free, Intramuscular 06/14/2020,07/11/2019,05/20/2019,06/29 Influenza, Trivalent, Preser vative Free, Intramuscular 05/26/2015 Influenza, Unspecified 09/11/2023(Deferr ed: Patient decision),04/18/2022,05/09/2021,2016,06/10/2014,06/12/2013,06/17/2012, 07/27/2011,06/01/2011,06/27/2010,05/26,06/25/2008,06/27/2007,07/11/2006 ,06/08/2005 Pfizer SARS-CoV-2 Monovalent Vaccination (12+ Yrs) PURPLE 12/13/2020,11/21/2020 Pneumococcal Conjugate PCV 13 04/24/2017 Pneumococcal Conjugate Pcv20 06/07/2022 Pneumococcal Polysaccharide PPV23 02/25/2019 Pneumococcal, Unspecified 06/12/2013 RSV Vaccine, Pref, Recombina nt, Subunit, Adjuvanted, PF, IM (Arexvy) 05/17/2023 Sars-cov-2 Covid-19 Mrna, Bi valent, Original/enioicron Ba.1 05/17/2023 Td, Unspecified 07/28/2004 Tdap 06/12/2013 ZOSTER LIVE 11/27/2012 ZOSTER Recombinant 02/21/2022,05/19/2021 Social History Tobacco Use Types Packs/Day Years Used Date Smoking Tobacco: Never Cigarettes Smokeless Tobacco: Never Tobacco Cessation:Counseling Given: Not Answered AUDIT-C Answer Date Recorded Q1: How often do you have a drink containing alcohol? Never 06/09/2024 Q2: How many drinks containi ng alcohol do you have on a typical day when you are drinking? Patient does not drink Q3: How often do you have si x or more drinks on one occasion? Never 06/09/2024 PHQ-2 Answer Date Recorded PHQ-2 Total Score (If total score is 3 or more points, staff should administer the PHQ-9) 0 06/09/2024 Personal Safety Answer Date Recorded Have you ever been in or are you currently in a harmful physical or emotional relationship or is someone making you feel afraid or unsafe? Denies 03/15/2024 Sex and Gender Information Value Date Recorded Sex Assigned at Not on file Legal Sex Male 6:59 PM BRIM SHAPER Gender Identity Male 08/23/2021 11:20 AM BRIM SHAPER Sexual Orientation Straight 08/23/2021 11 :20 AM BRIM SHAPER Last Filed Vital Signs Vital Sign Reading Time Taken Comments Blood Pressure 124/76 06/30/2024 8:57 AM BRIM SHAPER Pulse 97 06/30/2024 8:57 AM BRIM SHAPER Temperature 36.2 C (97.1 F) 06/30/2024 8:57 AM BRIM SHAPER Respiratory Rate 18 06/30/2024 8:57 AM BRIM SHAPER Oxygen Saturation 95% 06/30/2024 8:57 AM BRIM SHAPER Inhaled Oxygen Concentration - - Weight 109.3 kg (241 lb) 06/30/2024 8:57 AM BRIM SHAPER Height 188 cm (6' 2 ) 06/30/2024 8:57 AM BRIM SHAPER Body Mass Index 30.94 06/30/2024 8:57 AM BRIM SHAPER Plan of Treatment Not on file Procedures Procedure Name Priority Date/Time Associated Diagnosis Comments HEPATITIS C ANTIBODY Routine 07/03/2023 12:41 PM BRIM SHAPER COLONOSCOPY Routine 08/10/2020 from Last 3 Months or Most Recently Relevant to Health Maintenance Results * Hepatitis C antibody (07/03/2023 12:41 PM BRIM SHAPER) Hep C Ab NON-REACTI VE NON-REACT KIKI [facility] Comment: HCV antibody was non-reactive. There is no laboratory evidence of HCV infection. In most cases, no further action is required. However, if recent HCV exposure is suspected, a test for HCV RNA (test code 71735) is suggested. For additional information please refer to http://education.Tech urSelf/faq/GHI85h8 (This link is being provided for informational/ educational purposes only.) 07/03/2023 12:4 1 PM BRIM SHAPER 07/03/2023 12:42 PM BRIM SHAPER us Dane Muñoz MD LAB MICROBIOLOGY - GENERAL ORDERABLES Final Result [facility] [id number] [place] [address] * (ABNORMAL) Colonoscopy (08/10/2020) Anatomical Region Laterality Modality Other Impressions 08/10/2020 Procedure Notes - documented in this encounter Quirino Anderson MD - 08/10/2020 8:21 AM BRIM SHAPER Associated Order(s): COLONOSCOPY Procedure(s): COLONOSCOPY QUIRINO ANDERSON MD, FACG, FACP COLONOSCOPY This is a 70-year-old male with history of GERD, depression and HTN who now presents for colonoscopy for personal history of adenomatous colon polyps. GI review of systems is otherwise negative. No endocarditis risk factors. Allergies Allergen Reactions Lisinopril Anaphylaxis Medications: see list. Family history: negative for colon cancer. VITALS: Stable. LUNGS: Clear. HEART: RRR. S1/S2 normal. ABDOMEN: NABS/NT. The procedure of colonoscopy, its indications, alternatives of barium studies and risks including perforation, bleeding, infection, reaction to medication as well as the possible need for blood or surgery were discussed with the patient prior to the procedure. The patient voices understanding, agrees to proceed and provides informed consent. COLONOSCOPY INDICATION: Personal history of colon polyps. POST-OP: Four polyps removed; one cauterized. SEDATION: Per Anesthesia PREP: Good. With the patient in the left lateral decubitus position, the Olympus [id number] colonoscope was introduced into the rectum and advanced easily to the Terminal Ileum. Careful inspection of the mucosa was made upon insertion and withdrawal of the endoscope. FINDINGS: Terminal ileum: distal 5 cm normal. Cecum, descending colon and sigmoid colon normal. Ascending colon: 8 mm sessile polyp removed with cold biopsy forceps. Transverse colon: 3 cm and 2 cm sessile polyps removed with snare polypectomy without bleed. Rectum: 1.0 cm sessile polyp removed with snare polypectomy with minimal bleeding, cauterized with 10 [place] Gold probe. No masses, AVMs, colitis or diverticulosis seen. No complications, blood loss or implants. ASSESSMENT AND PLAN: Personal history of colon polyps: - Colonoscopy 11-23-2016 four adenomas - Colonoscopy 08-10-2020 with four polyps removed - If adenomatous repeat colonoscopy in 2 years otherwise suveillance colonoscopy in 5 years Thank you for allowing me to care for your patient. He will follow-up with Dr. Burrows as needed. Quirino Anderson M.D. SHAPER Historical Provider ENDOSCOPY PROCEDURES Rebekah l Result from Last 3 Months or Most Recently Relevant to Health Maintenance Insurance [facility] Care Teams Physical Education Aide Relationship Specialty Start Date End Date Dane Muñoz MD [address] [place] [id number] PCP - General Family Medicine 08/12/24 Quirino Anderson MD Referring Physician Gastroenterology 12/27/20
--- OUTSIDE RECORDS SUMMARY | 2024-10-13 14:00 | XMS_ITS | Clinical Summary ---
Author Organization [facility] Address [address] [place] [id number] Care Team Providers Care Functional Support Analyst Name Role Phone Yudith Burrows Primary Care Provider [phone] Allergies Active Allergy Reactions Criticality Noted Date Comments Lisinopril Anaphylaxis High 08/10/2020 Medications gemfibrozil 600 MG tablet 09/16/2019 Active hydroCHLOROthia zide 25 MG tablet 04/19/2020 Active meclizine 25 MG tablet 10/22/2019 Active sertraline 100 MG tablet 07/16/2020 Active traZODone 150 MG tablet Take 1 tablet (150 mg total) by mouth nightly at bedtime. Active HYDROcodone-mildred taminophen (NORCO) 5-325 MG tablet TAKE 1-2 TABLETS BY MOUTH EVERY 8 HOURS NEEDED FOR PAIN. 08/25/2022 Active vitamin D2, ergocalciferol, (DRISDOL) 1.25 mg capsule Take 1 capsule (50,000 Units total) by mouth once a week. 12/21/2021 Active buPROPion XL (WELLBUTRIN XL) 150 MG 24 hr tablet Take 1 tablet (150 mg total) by mouth every morning. 10/27/2022 Active ARIPiprazole (ABILIFY) 5 MG tablet Take 1 tablet (5 mg total) by mouth daily. 10/26/2022 Active omeprazole (PRILOSEC) 40 MG capsule Take 1 capsule (40 mg total) by mouth daily. 09/19/2022 Active Social History Tobacco Use Types Packs/Day Years Used Date Smoking Tobacco: Never Smokeless Tobacco: Never Alcohol Use Standard Drinks/Week Comments Not Currently 0 (1 standard drink = 0.6 oz pur e alcohol) Sex and Gender Information Value Date Recorded Sex Assigned at Not on file Legal Sex Male 8:04 PM CDT Gender Identity Not on file Sexual Orientation Not on file Last Filed Vital Signs Vital Sign Reading Time Taken Comments Blood Pressure 135/77 10/31/2022 12:28 PM CDT Pulse 55 10/31/2022 12:28 PM CDT Temperature 35.6 C (96.1 F) 10/31/2022 11:29 AM CDT Respiratory Rate 14 10/31/2022 12:28 PM CDT Oxygen Saturation 100% 10/31/2022 12:28 PM CDT Inhaled Oxygen Concentration - - Weight - - Height - - Body Mass Index - - Plan of Treatment Health Maintenance Due Date Last Done Comments Hepatitis C 1968 Annual Medicare Wellness Visit 2016 DTaP, Tdap and Td Vaccines (2 - Td or Tdap) 06/12/2023 06/12/2013, 07/28/2004 COVID-19 Vaccine ( season) 2024 08/02/2022, 12/13/2021, 05/18/2021, Additional history exists Influenza Adult (#1) 2024 04/18/2022, 05/09/2021, 06/14/2020, Additional history exists Colorectal Cancer Screening Colonoscopy (10 Years) 10/31/2032 10/31/2022, 10/31/2022, 08/10/2020, Additional history exists Zoster Vaccines Completed 02/21/2022, 04/22, 11/27/2012 Pneumococcal Vaccine: 65+ Years Completed 06/07/2022, 02/25/2019, 04/24/2017 RSV Immunization or 60+ Years Completed 05/17/2023 Meningococcal B Vaccine Aged Out No l onger eligible based on patient's age to complete this topic Meningococcal Vaccine Aged Out No tisha gila eligible based on patient's age to complete this topic RSV Immunizations Under 20 Months Aged Out No longer eligible based on patient's age to complete this topic Procedures Procedure Name Priority Date/Time Associated Diagnosis Comments COLONOSCOPY Routine 10/31/2022 12:23 PM CDT from Last 3 Months or Most Recently Relevant to Health Maintenance Results * Colonoscopy (10/31/2022 12:23 PM CDT) Narrative Procedure Note Quirino Pimentel MD - 10/31/2022 12:23 PM CDT QUIRINO PIMENTEL MD, FACG, FACP COLONOSCOPY 10/31/2022 This is a 72-year-old male with history of inguinal hernia repair, GERD,Depression, HTN and HLD who now presents for colonoscopy for personalhistory of adenomatous colon polyps. GI review of systems is otherwise negative. No endocarditis risk factors. Allergies Allergen Reactions Lisinopril Anaphylaxis Medications: see list. Family history: negative for colon cancer. VITALS: Stable. LUNGS: Clear. HEART: RRR. S1/S2 normal. ABDOMEN:NABS/NT. The procedure of colonoscopy, its indications, alternatives of bariumstudies and risks including perforation, bleeding, infection, reaction tomedication as well as the possible need for blood or surgery werediscussed with the patient prior to the procedure. The patient voicesunderstanding, agrees to proceed and provides informed consent. INDICATION: Personal history of colon polyps. POST-OP: Ten polyps removed. SEDATION: none. PREP: Good. With the patient in the left lateral decubitus position, the [id number] colonoscope was introduced into the rectum and advanced easilyto the cecum identified by Ileocecal valve, appendiceal orifice and cecalstrap. Careful inspection of the mucosa was made upon insertion andwithdrawal of the endoscope. FINDINGS: Cecum, Sigmoid colon and Rectum including retroflexion normal. Ascending colon: 7 mm sessile polyp x 4 removed with cold biopsy forcepswithout bleed. Transverse colon: 8 mm sessile polyp x 2 removed with snare polypectomywithout bleed. Descending colon: - 1.5 cm sessile polyp removed with snare polypectomy without bleed - 8 mm, 5 mm x 2 sessile polyps removed with cold biopsy forceps withoutbleed No masses, AVMs, colitis or diverticulosis seen. No complications, bloodloss or implants. ASSESSMENT AND PLAN: Personal history of colon polyps: - Colonoscopy 08/10/2020 with four polyps removed; three adenomas - Surveillance colonoscopy 10/31/2022 with ten polyps removed - If adenoma repeat colonoscopy in two years, otherwise five years Thank you for allowing me to care for your patient. He will follow-up withDr. Muñoz as needed. Quirino Pimentel M.D. Cc: Dr. Muñoz Quirino Pimentel MD GI PROCEDURE ORDERABLES Fin al Result from Last 3 Months or Most Recently Relevant to Health Maintenance Insurance [employer] Care Teams Functional Support Analyst Relationship Specialty Start Date End Date Yudith Burrows DO [address] [place] [phone] PCP - General INTERNAL MEDICINE 08/10/20
--- OUTSIDE RECORDS SUMMARY | 2024-10-13 14:00 | XMS_ITS ---
Author Organization [facility] Address [address] [place] [address] Care Team Providers Care Weight Caller Name Role Phone Nica Sol Primary Care Provider Allergies Allergen (clinical drug ingredient) Drug/Non Drug Allergy documented on EMR Reaction Allergy Type Onset Date Status lisinopril Lisinopril anaphylaxis Drug Allergy Act alan REASON FOR VISIT sore throat Medications Medication SIG (Take, Route, Frequency, Duration) Notes Start Date End Date Status HYDROcodone-Acetaminophen 5-325 MG 1 tablet as needed as needed Active Promethazine-DM 6.25-15 MG/5ML 5 mL as needed Orally every 6 hrs for 10 days As needed cough 10/08/2024 Active traZODone HCl 50 MG 1 tablet at bedtime as needed Once a day Active Furosemide 20 MG 1 tablet Once a day Active Atorvastatin Calcium 10 MG 1 tablet Once a day Active buPROPion HCl ER (XL) 150 MG 1 tablet in the morning Once a day Active Sertraline HCl 200 MG 1 capsule Once a day Active Social History Tobacco Use: Social History Observation Description Date Details (start date - stop date) Never Smoker NA - NA Sex Assigned At : Social History Observation Description Sex Assigned At Male Tobacco Control (Standard) Question Answer Notes Tobacco use: Nonsmoker Vital Signs Weight 234.8 lbs 10/09/2024 Height 74 in 10/09/2024 BMI 30.14 kg/m2 10/09/2024 Blood pressure systolic 118 mm Hg 10/09/19 25 Blood pressure diastolic 78 mm Hg 025 Heart Rate 61 /min 10/09/2024 Oximetry 98 % 10/09/2024 Temperature 98.8 degrees Fahrenheit 10/09/19 25 Respiratory Rate 18 /min 10/09/2024 Encounters Encounter Location Date Provider Diagnosis [facility] [address]ryn [address] [address] 10/09/2024 Nica Sol Nutritional counseling Z71.3 ; Viral upper respiratory infection J06.9 and Development delay R62.50 Assessments Encounter Date Diagnosis (ICD Code) Assessment Notes Treatment Notes Treatment Clinical Notes Section Notes 10/09/2024 Nutritional counseling (ICD-10 - Z71.3) 10/09/2024 Viral upper respiratory infection (ICD-10 - J06.9) 10/09/2024 Development delay (ICD-10 - R62.50) 10/09/2024 Other Patient may self-administer their own medications or may self-administer their own oral medications per [place] Protocol. 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 Subjective: * Chief Complaints: * S ore throat * HPI: D epression Screening: PHQ-9 L ittle interest or pleasure in doing things N ot at all, F eeling down, depressed, or hopeless N ot at all, T rouble falling or staying asleep, or sleeping too much N ot at all, F eeling tired or having little energy N ot at all, P oor appetite or overeating N ot at all, F eeling bad about yourself or that you are a failure, or have let yourself or your family down N ot at all, T rouble concentrating on things, such as reading the newspaper or watching television N ot at all, M oving or speaking so slowly that other people could have noticed; or the opposite, being so fidgety or restless that you have been moving around a lot more than usual N ot at all, T otal Score 0 , I nterpretation M inimal Depression, T houghts that you would be better off or of hurting yourself in some way N ot at all. I ntervention D epression Screening Findings N egative. S creening: [place] Suicide Severity Rating Scale (LF) D o you want to initiate with S creener form, 1 . Wish to be : Have you wished you were or wished you could go to sleep and not wake up? N o, 2 . Suicidal Thoughts: Have you actually had any thoughts of killing yourself? N o, 6 . Suicide Behavior Question: Have you ever done anything,started to do anything, or prepared to end your life? N o, I nterpretation: L ow Risk. I nterim History: Emergency room visit N o. W as hospitalized N o.? P reventative Health and Wellness follow-up: Action Plans for Clinical Quality Measures: A dult BMI and follow-up: O ther (see notes). BMI nutrition discussed, C olorectal Cancer Screening: D iscussed need for colorectal cancer screening. Patient declined.. . C SSRS Interpretation and Follow Up Plan: CSSRS Interpretation and Follow Up Plan C SSRS Screen documented using SF Y es, R isk Disposition from L ow - No Follow Up Plan Required, F ollow Up Plan N o Follow Up Plan required at this time.. S ummary: CC; MCCARTHY, sore throat, cough onset [address] Roth yesterday with same Sx. no new concerns today discussed likely viral respiratory infection Tx of symptoms; rest, isolation, hydration RTC if CP, SOB. * ROS: G eneral/Constitutional: Denies C hange in appetite. D enies C hills. D enies F atigue. D enies F ever. D enies H eadache. D enies W eight loss.? R espiratory: Denies D yspnea. D enies C hest pain. A dmits?Cough. D enies P ain with inspiration. D enies S hortness of breath. A dmits?Sputum production. C ardiovascular: Denies E lorenzo. D enies C hest pain. D enies?Claudication. G astrointestinal: Denies A bdominal pain. D enies N ausea. G enitourinary: urinary problems D enies. M usculoskeletal: Patient denies m usculoskeletal concerns. S kin: Billy rider. * Medical History: * Surgical History: h ernia repair 1963 * Hospitalization/Major Diagno stic Procedure: N o Hospitalization History. * Family History: F ather: . M other: . 2 brother(s) , 1 sister(s) . . mom-stroke dad-diabetes sister-lung cancer. * Social History: P rimary Social History: L iving Arrangement L iving Arrangement: I ndependent Living, I s this a supportive environment? Y es. A lcohol Use A lcohol Use Frequency: N ever. I llicit Substance Usage I llicit Substance Usage: N o. E mployment Status E mployment Status:? Retired. T obacco Use: T obacco Control (Standard) T obacco use: N onsmoker. M iscellaneous: M ethod of learning P referred method of learning: Tc balbuena. * Medications: T akingbuPROPion HCl ER (XL) 150 MG Tablet Extended Release 24 Hour 1 tablet in the morning Once a day Sertraline HCl 200 MG Capsule 1 capsule Once a day traZODone HCl 50 MG Tablet 1 tablet at bedtime as needed Once a day Atorvastatin Calcium 10 MG Tablet 1 tablet Once a day Furosemide 20 MG Tablet 1 tablet Once a day Promethazine-DM 6.25-15 MG/5ML Syrup 5 mL as needed Orally every 6 hrs As needed coughHYDROcodone-Acetaminophen 5-325 MG Tablet 1 tablet as needed as needed Medication List reviewed and reconciled with the patientTaking buPROPion HCl ER (XL) 150 MG Tablet Extended Release 24 Hour 1 tablet in the morning Once a day Taking Sertraline HCl 200 MG Capsule 1 capsule Once a day Taking traZODone HCl 50 MG Tablet 1 tablet at bedtime as needed Once a day Taking Atorvastatin Calcium 10 MG Tablet 1 tablet Once a day Taking Furosemide 20 MG Tablet 1 tablet Once a day Taking Promethazine-DM 6.25-15 MG/5ML Syrup 5 mL as needed Orally every 6 hrs As needed coughTaking HYDROcodone-Acetaminophen 5-325 MG Tablet 1 tablet as needed as needed Medication List reviewed and reconciled with the patient * Allergies: L isinopril: anaphylaxisno[Allergies Verified] Objective: * Vitals: I nitials: LL, Wt:234.8, Ht: 74, BMI:30.14, BP:118/78, HR:61, Oxygen sat %:98, Temp:98.8, RR:18, Pain scale:0. * Examination: G eneral Examination: GENERAL APPEARANCE: a lert, oriented, well developed, well nourished, in no acute distress. EYES: P ERRLA, sclera and conjunctiva clear. EARS L EFT EAR, auditory canal obscured with wax. NOSE: n nereida patent, no lesions, septum intact. ORAL CAVITY: m ucosa moist. THROAT: n o erythema, no exudate, pharynx normal. NECK/THYROID: n o cervical lymphadenopathy, no thyromegaly.? SKIN: w arm and dry, no rashes. HEART: r egular rate and rhythm, no murmurs. LUNGS: r espirations regular and easy, clear to auscultation bilaterally. ABDOMEN: b owel sounds present, soft, nontender, nondistended, no masses palpable, no organomegaly . Assessment: * Assessment: 1. V iral upper respiratory infection - J06.9 (Primary) 2 . N utritional counseling - Z71.3 3 . D evelopment delay - R62.50 Plan: * Treatment: * Recommended Wellness and Pre vention Guidelines: * S tatus A lert L ast Done N ext Due A ction Taken N ONCOMPLIANT C olorectal cancer screening - 0 10/09/2024 - * Procedure Codes: 3 008F BODY MASS INDEX [id number] MEDICAL NUTRITION, INDIV, [id number] TOBACCO [id number] [facility] VISIT ESTABLISHED PATIENT * Preventive Medicine: Counseling: C are goal follow-up plan: B RI management provided Neftali Chavez Normal BMI Follow-up L ifestyle education regarding diet. * Follow Up: 3 Months (Reason: f/u) * * NT INTEGRATION MANAGER Sign off status: Completed true * Provider: Michael Sol, AIDEN Date: 0 10/09/2024 Generated for Randi patel/Ben/eTransmitting on: 0 10/13/2024 01:59 PM CLIENT INTEGRATION MANAGER History and Physical Notes * HPI (History of Present Illness) Category Sub-Category Detail Notes Category Not es Interim History Was hospitalized No Emergency room visit No Depression Screening PHQ-9 Little inte rest or pleasure in doing things: Not at all Feeling down, depressed, or hopeless: No t at all Trouble falling or staying asleep, or sl eeping too much: Not at all Feeling tired or having little energy: N ot at all Poor appetite or overeating: Not at all Feeling bad about yourself o r that you are a failure, or have let yourself or your family down: Not at all Trouble concentrating on thi ngs, such as reading the newspaper or watching television: Not at all Total Score: 0 Moving or speaking so slowly that other people could have noticed; or the opposite, being so fidgety or restless that you have been moving around a lot more than usual: Not at all Interpretation: Minimal Depression Thoughts that you would be b zamzam off or of hurting yourself in some way: Not at all Intervention Depression Screening Findings: N egative Summary CC; MCCARTHY, sore throat, cough onset [address] Roth yesterday with same Sx. no new concerns today discussed likely viral respiratory infection Tx of symptoms; rest, isolation, hydration RTC if CP, SOB Screening [place] Suicide Severity Rating Scale (LF) Do you want to initiate with: Screener form 1. Wish to be : Have you wished you were or wished you could go to sleep and not wake up?: No 2. Suicidal Thoughts: Have you actually had any thoughts of killing yourself?: No 6. Suicide Behavior Question: Have you ever done anything,started to do anything, or prepared to end your life?: No Interpretation:: Low Risk Preventative Health and Wellness follow-up Action Plans for Clinical Quality Measures: Adult BMI and follow-up:: Other (see notes). BMI nutrition discussed . Colorectal Cancer Screening: : Discussed need for colorectal cancer screening. Patient declined. CSSRS Interpretation and Follow Up Plan CSSRS Interpretation and Follow Up Plan CSSRS Screen documented using SF: Yes Risk Disposition from SF: Low - No Follo w Up Plan Required Follow Up Plan: No Follow Up Plan requir ed at this time. Examination Category Sub-Category Detail Notes Category Not es General Examination GENERAL APPEARANCE: alert, o riented, well developed, well nourished, in no acute distress EYES: PERRLA, sclera and c onjunctiva clear EARS LEFT EAR, auditory c anal obscured with wax NOSE: nares patent, no les ions, septum intact THROAT: no erythema, no exud ate, pharynx normal NECK/THYROID: no cervical lymphade nopathy, no thyromegaly HEART: regular rate and rhy thm, no murmurs LUNGS: respirations regular and easy, clear to auscultation bilaterally ABDOMEN: bowel sounds present , soft, nontender, nondistended, no masses palpable, no organomegaly SKIN: warm and dry, no edward hes ORAL CAVITY: mucosa moist
--- OUTSIDE RECORDS SUMMARY | 2024-10-13 14:00 | XMS_ITS | Clinical Summary ---
Author Organization [facility] [address] [facility] [address] Address [address] [address] Care Team Providers Care Traffic Administrator Name Role Phone Quirino Anderson MD Unavailable [phone] Dane Muñoz MD Primary Care Provider [phone] Allergies Active Allergy Reactions Criticality Noted Date [...] inability to tolerate oral intake Bipolar depression ([facility]) 09/10/2023 Assessment & Plan (06/06/2024 12:52 PM CDT): Continue Zoloft/Abilify at same dosage. Well controlled. Assessment & Plan (03/21/2024 11:21 AM CDT): Continue sertraline/Abilify/Wellbutrin at same dosage. Well controlled. Assessment & Plan (09/11/2023 3:13 PM SANIPRACTIC PHYSICIAN): Continue Wellbutrin/Abilify at same dosage. Well controlled. Chronic bilateral low back pain with right-sided sciatica 06/12/2023 Assessment & Plan (06/06/2024 12:56 PM CDT): Infrequent need for [place] or Motrin. Patient is advised that opiates [...] Tylenol. Assessment & Plan (09/11/2023 3:20 PM SANIPRACTIC PHYSICIAN): Improved. Now taking medicines including Motrin and [...] controlled. Assessment & Plan (09/15/2022 8:07 AM SANIPRACTIC PHYSICIAN): Improved. Continu Wellbutrin/Abilify/Zoloft at same dosage. Well controlled. Assessment & Plan (08/01/2022 1:35 PM SANIPRACTIC PHYSICIAN): Worsening of agitation x1 month. This is [...] 10/26/2021 Assessment & Plan (10/27/2021 10:15 AM SANIPRACTIC PHYSICIAN): Complete wax blockage and we will try and removed by combination of manual deprived meant and irrigation. A large amount of wax was removed in ear drum appears normal Upper respiratory infection 08/23/2021 Assessment & Plan (08/23/2021 1:17 PM SANIPRACTIC PHYSICIAN): We will give Z-Quinten and oral steroids [...] unclear Assessment & Plan (08/23/2021 1:17 PM SANIPRACTIC PHYSICIAN): Treat with oral steroids Dermatitis 05/03/2021 Assessment [...] uniform Assessment & Plan (06/30/2021 2:57 PM SANIPRACTIC PHYSICIAN): At the time of the last visit [...] controlled. Assessment & Plan (07/10/2022 1:19 PM SANIPRACTIC PHYSICIAN): Worsening of hypertension. I got higher than the nurse but this systolic at 142. systolic .Taking HCTZ 25 mg daily. Recommend add amlodipine 5 mg. Amlodipine declined. Assessment & Plan (12/30/2021 1:00 PM CDT): Continue HCTZ at same dosage. Well controlled. Assessment & Plan (10/26/2021 8:59 AM SANIPRACTIC PHYSICIAN): Continue HCTZ at same dosage. Well controlled. Assessment & Plan (06/30/2021 2:52 PM SANIPRACTIC PHYSICIAN): Continue HCTZ at same dosage. Well controlled. Assessment & Plan (05/01/2021 2:07 PM CDT): Continue HCTZ at same dosage. Well controlled. Assessment & Plan (12/27/2020 2:27 PM CDT): Continue HCTZ at same dosage. Well controlled. Gastroesophageal reflux disease 12/27/2020 Assessment & Plan (01/02/2022 1:39 PM CDT): Recommend trial off omeprazole but restart if symptoms recur Well controlled. Assessment & Plan (10/26/2021 9:02 AM SANIPRACTIC PHYSICIAN): Continue omeprazole at same dosage. Well controlled. Assessment & Plan (06/30/2021 2:53 PM SANIPRACTIC PHYSICIAN): Continue Pepcid at same dosage. Well controlled. [...] labs Assessment & Plan (07/30/2022 1:45 PM SANIPRACTIC PHYSICIAN): Continue Lopid at same dosage. Well controlled. Assessment & Plan (07/07/2022 9:48 AM SANIPRACTIC PHYSICIAN): Continue Lopid at same dosage. Well controlled. Assessment & Plan (12/30/2021 1:04 PM CDT): Lipids in 6 months. Continue gemfibrozil at same dosage. Well controlled. Assessment & Plan (10/26/2021 9:03 AM SANIPRACTIC PHYSICIAN): Continue Lopid at same dosage. Well controlled. Assessment & Plan (06/30/2021 2:54 PM SANIPRACTIC PHYSICIAN): Continue Lopid at same dosage. Well controlled. [...] controlled. Assessment & Plan (10/26/2021 9:01 AM SANIPRACTIC PHYSICIAN): Continue trazodone at same dosage. Well controlled. Assessment & Plan (06/30/2021 2:53 PM SANIPRACTIC PHYSICIAN): Continue trazodone at same dosage. Well controlled. [...] controlled. Assessment & Plan (09/15/2022 8:06 AM SANIPRACTIC PHYSICIAN): Improved. Continue Wellbutrin/Abilify/Zoloft at same dosage. Well controlled. Assessment & Plan (08/01/2022 1:43 PM SANIPRACTIC PHYSICIAN): Because of increased agitation we will decrease the Wellbutrin to 150 mg. Continue Zoloft at 200 mg. Add Abilify 5 mg. This is more anger than a physical symptoms. Assessment & Plan (07/07/2022 9:48 AM SANIPRACTIC PHYSICIAN): Continu Wellbutrin at same dosage. Well controlled. Assessment & Plan (02/13/2022 11:39 AM CDT): Continue Wellbutrin/sertraline at same dosage. Well controlled. Assessment & Plan (12/30/2021 1:00 PM CDT): Continue Zoloft/Wellbutrin at same dosage. Well controlled. Assessment & Plan (10/26/2021 9:00 AM SANIPRACTIC PHYSICIAN): Continue Zoloft/Wellbutrin at same dosage. Well controlled. Assessment & Plan (06/30/2021 2:53 PM SANIPRACTIC PHYSICIAN): Continue Zoloft/bupropion at same dosage. Well controlled. [...] 12/27/2020 Assessment & Plan (09/10/2023 5:03 PM SANIPRACTIC PHYSICIAN): BMI Follow-up includes: nutrition counseling and exercise counseling. Assessment & Plan (01/08/2023 3:49 PM CDT): .BMI Follow-up includes: nutrition counseling and exercise counseling. Assessment & Plan (07/07/2022 9:49 AM SANIPRACTIC PHYSICIAN): BMI Follow-up includes: nutrition counseling and exercise counseling. Assessment & Plan (12/30/2021 1:06 PM CDT): BMI Follow-up includes: nutrition counseling and exercise counseling. Assessment & Plan (10/26/2021 9:04 AM SANIPRACTIC PHYSICIAN): BMI Follow-up includes: nutrition counseling and exercise counseling. Assessment & Plan (06/30/2021 2:54 PM SANIPRACTIC PHYSICIAN): BMI Follow-up includes: nutrition counseling and exercise [...] meclizine. Assessment & Plan (09/15/2022 8:07 AM SANIPRACTIC PHYSICIAN): No change in symptoms and well controlled with Antivert as needed. Assessment & Plan (08/01/2022 1:42 PM SANIPRACTIC PHYSICIAN): Chronic positional vertigo previously helped by Antivert [...] level. Assessment & Plan (09/10/2023 5:01 PM SANIPRACTIC PHYSICIAN): Continue weekly vitamin-D but needs repeat level. Assessment & Plan (07/30/2022 1:45 PM SANIPRACTIC PHYSICIAN): Continue vitamin-D weekly but needs repeat level. Assessment & Plan (12/30/2021 1:00 PM CDT): Needs repeat level. Continue vitamin-D same dosage Assessment & Plan (10/26/2021 9:01 AM SANIPRACTIC PHYSICIAN): Continue vitamin-D weekly same dosage but needs repeat vitamin-D level. Assessment & Plan (06/30/2021 2:54 PM SANIPRACTIC PHYSICIAN): Continue 30536 units weekly vitamin-D. Repeat level. Assessment & [...] pineapple, and bananas. Encouraged to maintain vegetables. Encounters Date Type Department Care Team Description 08/18/2024 Nurse Triage [facility] [address] [place] [phone] Dane Muñoz MD Acute cough (Primary Dx); Shortness of breath 08/11/2024 Telephone [facility] [address] [place] [phone] Dane Muñoz MD Medical Question/Miscellane ous 08/05/2024 Telephone [facility] [address] [place] [phone] Dane Muñoz MD Medical Question/Miscellane ous 08/04/2024 Patient Self-Triage [facility] [address] [place] [phone] Mychart, Generic Provider 08/04/2024 Patient Self-Triage [facility] [address] [place] [phone] Mychart, Generic Provider 08/04/2024 Patient Self-Triage [facility] [address] [place] [phone] Mychart, Generic Provider 08/04/2024 Patient Self-Triage [facility] [address] [place] [phone] Mychart, Generic Provider 08/01/2024 Telephone [facility] [address] [place] [phone] Dane Muñoz MD Additional Services Or Orders 07/13/2024 6:30 PM SANIPRACTIC PHYSICIAN Telemedicine [facility] Virtual Care [address] [place] [address] Kadi Morrison NP Bronchitis (Primary Dx) 07/13/2024 Patient Self-Triage [facility] [address] [place] [address] Mychart, Generic Provider from Last 3 Months Immunizations Immunization Administration Dates Next Due Influenza [...] (Arexvy) 05/17/2023 Sars-cov-2 Covid-19 Mrna, Bi valent, Original/omicron Ba.1 05/17/2023 Td, Unspecified 07/28/2004 Tdap 06/12/2013 ZOSTER LIVE 11/27/2012 ZOSTER Recombinant 02/21/2022,05/19/2021 Surgical History Surgery Date Site/Laterality Comments HERNIA REPAIR 08/20/1956 - 08/19/1957 HEMORROIDECTOMY Medical History Medical History Date Comments GERD (gastroesophageal reflux disease) Hyperlipidemia Hypertension Finger fracture, left Anxiety Family History Medical History Relation Name Comments No Known Problems Brother Diabetes Father Franklin Martinez Sr Hypertension Father Franklin Martinez Sr Pneumonia Father Franklin Martinez Sr Hypertension Mother Arlene Martinez Stroke Mother Arlene Martinez Diabetes Paternal Grandmother I don't remember No Known Problems Sister Relation Name Status Comments Brother Alive Father Franklin Martinez Sr Mother Arlene Martinez Paternal Grandmother I don't remember Sister Alive Social History Tobacco Use Types Packs/Day Years [...] on file Legal Sex Male 6:59 PM SANIPRACTIC PHYSICIAN Gender Identity Male 08/23/2021 11:20 AM SANIPRACTIC PHYSICIAN Sexual Orientation Straight 08/23/2021 11 :20 AM SANIPRACTIC PHYSICIAN Obstetrics History Last Filed Vital Signs Vital Sign Reading Time Taken Comments Blood Pressure 124/76 06/30/2024 8:57 AM SANIPRACTIC PHYSICIAN Pulse 97 06/30/2024 8:57 AM SANIPRACTIC PHYSICIAN Temperature 36.2 C (97.1 F) 06/30/2024 8:57 AM SANIPRACTIC PHYSICIAN Respiratory Rate 18 06/30/2024 8:57 AM SANIPRACTIC PHYSICIAN Oxygen Saturation 95% 06/30/2024 8:57 AM SANIPRACTIC PHYSICIAN Inhaled Oxygen Concentration - - Weight 109.3 kg (241 lb) 06/30/2024 8:57 AM SANIPRACTIC PHYSICIAN Height 188 cm (6' 2 ) 06/30/2024 8:57 AM SANIPRACTIC PHYSICIAN Body Mass Index 30.94 06/30/2024 8:57 AM SANIPRACTIC PHYSICIAN Plan of Treatment Health Maintenance Due Date Last Done Comments Hepatitis B Screening 1968 DTaP/Tdap/Td Vaccine (2 - Td or Tdap) 06/12/2023 06/12/2013, 07/28/2004 Covid-19 Vaccine (2023-2 5 season) 2024 05/17/2023, 08/02/2022, 12/13/2021, Additional history exists Fall Risk Assessment 03/21/2025 03/21/2024, 09/11/2023, 09/15/2022, Additional history exists Well Visit 65+ 03/21/2025 03/21/2024, 06/21, 05/03/2021 Depression Screening 06/09/2025 06/09/2024, 03/21/2024, 03/13/2024, Additional history exists Colon Cancer Screening-Colonoscopy 08/10/20252019 Zoster Vaccine Completed 02/21/2022, 04/22, 11/27/2012 Pneumococcal vaccine 65+ Completed 022, 02/25/2019, 04/24/2017, Additional history exists Hepatitis C Screening Completed 07/03/2023 Influenza Vaccine Completed 05/19/2024, , 04/18/2022, Additional history exists Procedures Procedure Name Priority Date/Time Associated Diagnosis Comments HEPATITIS C ANTIBODY Routine 07/03/2023 12:41 PM SANIPRACTIC PHYSICIAN COLONOSCOPY Routine 08/10/2020 from Last 3 Months or Most Recently Relevant to Health Maintenance Results * Hepatitis C antibody (07/03/2023 12:41 PM SANIPRACTIC PHYSICIAN) Hep C Ab NON-REACTI VE NON-REACT [facility] Comment: HCV antibody was non-reactive. There is no laboratory evidence of HCV infection. In most cases, no further action is required. However, if recent HCV exposure is suspected, a test for HCV RNA (test code 23398) is suggested. For additional information please refer to http://education.WealthTouch/faq/BYK16i2 (This link is being provided for informational/ educational purposes only.) 07/03/2023 12:4 1 PM SANIPRACTIC PHYSICIAN 07/03/2023 12:42 PM SANIPRACTIC PHYSICIAN Dane Muñoz MD LAB MICROBIOLOGY - GENERAL ORDERABLES Final Result Performing Organization Address City/State/[facility] Co de Phone Number [facility] [address] [place] [address] * (ABNORMAL) Colonoscopy (08/10/2020) Anatomical Region Laterality Modality Other Impressions 08/10/2020 Procedure Notes - documented in this encounter Quirino Anderson MD - 08/10/2020 8:21 AM SANIPRACTIC PHYSICIAN Associated Order(s): COLONOSCOPY Procedure(s): COLONOSCOPY QUIRINO ANDERSON [...] the left lateral decubitus position, the Olympus AGUK030Q colonoscope was introduced into the rectum and [...] polypectomy with minimal bleeding, cauterized with 10 [place] Gold probe. No masses, AVMs, colitis or [...] Dr. Burrows as needed. Quirino Anderson M.D. PRACTIC PHYSICIAN Historical Provider MD ENDOSCOPY PROCEDURES Rebekah l Result from Last 3 Months or Most Recently Relevant to Health Maintenance Insurance [facility] Member Subscriber Plan / Payer (Ef fective 2020-Present) Name:Franklin Martinez Relation to Subscriber:Self Name:Franklin Martinez Payer ID:[id number] (NAIC) Type:MEDICARE RISK OTHER Address: [place] [phone] Care Teams Traffic Administrator Relationship Specialty Start Date End Date Dane Muñoz MD [address] [place] [id number] PCP - General Family Medicine 08/12/24 Quirino Anderson MD Referring Physician Gastroenterology 12/27/20
[2024-10-13 14:24] VITALS: BP 118/78; PULSE 68; RESP 16; TEMP 36.6; O2SAT 98
== END 2024-10-13 14:25 | disposition home or self-care (01) ==
PROVIDERS: Emergency Provider Emergency Medicine; PCP Nurse Practitioner Family
DX: B34.9 Viral infection, unspecified (principal); Z20.822 Contact with and (suspected) exposure to COVID-19
CPT/HCPCS: 71045; 87637; 99283; A9270